=== PATIENT | female | born 1955 | race Caucasian/White ===

== ENCOUNTER 2020-04-19 14:24 | Observation (INO) | payer OTHER, SELFPAY ==
[2020-04-19] VITALS (33 sets, daily range): BP systolic 136–180; BP diastolic 59–92; PULSE 54–79; RESP 12–29; TEMP 36.2–36.9; O2SAT 93–100; BMI 32.9; BMI 31.6
--- NOTE | 2020-04-19 14:30 | DI.RAD.S_ITS ---
PROCEDURE: XR CHEST 1V INDICATIONS: chest pain TECHNIQUE: One view of the chest was acquired. COMPARISON: None. FINDINGS: Surgical changes and devices: None. Lungs and pleura: Lungs are clear. No pleural effusions or pneumothorax. Mediastinum: Mediastinal contours appear normal. Heart size is normal. Bones and chest wall: No suspicious bony lesions. Overlying soft tissues appear unremarkable. IMPRESSION: No acute disease. Dictated by: Hai Rasheed M.D. on 04/19/2020 at 14:55 Approved by: Hai Rasheed M.D. on 04/19/2020 at 14:56
[2020-04-19 14:55] LABS: Alanine Aminotransferase 20 IU/L (<35); Albumin 4.5 g/dL (3.5-5.0); Albumin Globulin Ratio 1.4 (1.0-2.8); Alkaline Phosphatase 87 U/L (38-126); Aspartate Aminotransferase 33 IU/L (14-36); BUN Creatinine Ratio 22.7 (6-22); Bilirubin Total 0.5 mg/dL (0.2-1.3); Blood Urea Nitrogen 17 mg/dL (7-17); Calcium 9.3 mg/dL (8.4-10.2); Carbon Dioxide 27 mmol/L (22-32); Chloride 105 mmol/L (98-107); Creatine Kinase 161 U/L (30-135); Estimated Glomerular Filt Rate > 60.0 mL/min (>60); Globulin 3.3 g/dL (1.7-4.1); Glucose 93 mg/dL (80-110); HEMOLYSIS < 15 (0-50); Lipase 156 U/L (23-300); Sodium 137 mmol/L (137-145); Total Protein 7.8 g/dL (6.3-8.2)
[2020-04-19 14:57] LABS: Prothrombin Time 11.5 SECONDS (10.1-12.7)
[2020-04-19 14:59] LABS: Add Manual Diff / Slide Review NO; Basophils Absolute Auto 100 /uL (0-100); Basophils Percent Auto 1.2 % (0-2); Eosinophils Absolute Auto 300 /uL (0-450); Eosinophils Percent Auto 3.6 % (2-4); Hematocrit 40.2 % (36-46); Hemoglobin 13.4 g/dL (12.0-16.0); Lymphocytes Absolute Auto 2200 /uL (1100-4500); Lymphocytes Percent Auto 30.4 % (25-40); Mean Corpuscular HGB Conc 33.3 % (30-36); Mean Corpuscular Hemoglobin 28.4 PG (26-34); Mean Corpuscular Volume 85.1 fL (80-100); Monocytes Absolute Auto 600 /uL (0-900); Monocytes Percent Auto 8.4 % (3-14); Neutrophils Absolute Auto 4100 /uL (1500-7000); Neutrophils Percent Auto 56.4 % (50-75); Platelet Count 255 X10^3/uL (150-400); Red Blood Cell Count 4.73 X10^6/uL (4.0-5.2); Red Cell Distribution Width 13.6 % (11.6-14.8); White Blood Cell Count 7.2 X10^3/uL (4.5-11.0)
[2020-04-19 15:00] LABS: PTT Partial Thromboplastin Tim 31 SECONDS (26.4-36.2)
[2020-04-19 15:07] LABS: Troponin I < 0.012 ng/mL (0.01-0.034)
[2020-04-19 15:11] LABS: CKMB % Relative Index 1.5 % (1.5-5.0); Creatine Kinase MB 2.34 ng/mL (<2.37)
--- NOTE | 2020-04-19 15:19 | ED.CHESTPAIN ---
HPI - Chest Pain General Chief Complaint: Chest Pain Stated Complaint: chest pain Time Seen by Provider: 04/19/20 15:19 Source: EMS Mode of arrival: EMS Limitations: no limitations History of Present Illness HPI narrative: This is a 64-year-old female comes in with complaint of chest pain. Patient states she had pain over both her collar bones, radiating towards her neck and threw her upper back. She also has some discomfort in her ribcage. She states this started about 10:00 a.m. today she states it was pretty constant till about 12 30. She received aspirin 324 mg this seemed to start relieve her symptoms. She had 1 spray of nitro sublingual she states her symptoms were completely resolved. She states it did feel more comfortable to take a deep breath in her ribcage. She states she has been under lot of stress lately. She does not currently have any symptoms. She denies any fevers, no chills, no cough cold or congestion. No shortness of breath, no diaphoresis. She denies any nausea no vomiting no issues with bowel movements or urination denies any swelling in her extremities. She does use drops for glaucoma. She denies any other medications. She had a total hysterectomy. No allergies to medications. No tobacco, alcohol or illicit. She follows with Dr. [place] in [place]. Family history mom had a heart attack followed by stroke at 89 years of age. She denies other embolic or pulmonary history. She had a stress test 2 years ago which she states did not have any findings. Related Data Home Medications Medication Instructions Recorded Confirmed bimatoprost [Lumigan] 1 drp EYE-BOTH BEDTIME 04/19/20 04/19/20 Allergies Allergy/AdvReac Type Severity Reaction Status Date / Time No Known Allergies Allergy Verified 04/19/20 16:59 Review of Systems Review of Systems ROS Unobtainable: All systems reviewed & are unremarkable except as noted in HPI and below Patient History Medical History (Updated 04/19/20 @ 15:36 by Donna Griggs DO) Glaucoma Social History Smoking Status: Never smoker Smoking Status: Never smoker Substance Use Type: does not use Exam Narrative Exam Narrative: GENERAL: Alert and oriented x three, well-nourished, well-appearing female in mild distress. HEENT: Head normocephalic, atraumatic, EOMI, pupils reactive, face symmetric, moist mucous membranes NECK: Supple, full range of motion CARDIOVASCULAR: Regular rate and rhythm without murmurs, rubs or gallops. RESPIRATORY: Breath sounds equal bilaterally, no wheezes rales or rhonchi. Chest pain not reproducible on exam. ABDOMEN: Soft, nontender. Normoactive bowel sounds all 4 quadrants. No guarding or rebound, rigidity, no mass : No CVA tenderness EXTREMITIES: Normal range of motion, no clubbing or edema. Neurovascularly intact NEUROLOGICAL: Cranial nerves II through XII grossly intact. Moving all extremities SKIN: Warm, dry, no petechiae, no rashes or lesions. Initial Vital Signs Initial Vital Signs: Vital Signs Temperature 98.4 F 04/19/20 14:25 Pulse Rate 70 04/19/20 14:25 Respiratory Rate 16 04/19/20 14:25 Blood Pressure 157/79 H 04/19/20 14:25 Pulse Oximetry 96 04/19/20 14:25 Scores HEART Score Heart Score history: Moderately Suspicious Heart Score EKG: Non-Specific repolarization disturbance Heart Score Age: > or = 65 years old Heart Score risk factors: No known risk factors Heart Score troponin: < or = to normal limit Heart Score Total: 4 Course Orders Ordered: ED Orders 04/19/20 14:30 XR chest 1V Stat EKG-12 Lead Stat 04/19/20 14:32 Complete Blood Count AUTO DIFF Stat Comprehensive Metabolic Panel Stat D Dimer Stat Lipase Stat Partial Thromboplastin Time Stat Prothrombin Time INR Stat Troponin & CK Cardiac Panel Stat 04/19/20 15:01 COVID19 Stat 04/19/20 15:08 EKG-12 Lead Stat 04/19/20 16:55 Troponin I Stat Nitroglycerin (Nitroglycerin 0.4 Mg Sl Tab) 0.4 mg SL [id number] PRN PRN Reason: Chest Pain Last Admin: 04/19/20 16:50 Dose: 0.4 mg Documented by: BOLIVAR Discontinued Medications Nitroglycerin (Nitroglycerin Oint 1 Inch/Gm Oint...G.) 0.5 inch TOP NOW ONE Stop: 04/19/20 17:26 Last Admin: 04/19/20 17:31 Dose: 0.5 inch Documented by: BOLIVAR Consultations Consultation #1: Dr. Linares, recommends if troponins have remained negative but with described EKG changes observation for trending troponin and chest stress testing tomorrow. If patient's troponins turn positive for patient has new progressive EKG changes recommends re-consultation with Cardiology. Time: 18:33 Consultation #2: Dr. Armendariz accepts for observation. Stress test in am. Time: 18:46 Vital Signs Vital signs: Vital Signs - 8 hr 04/19/20 14:25 04/19/20 14:26 04/19/20 14:27 Temperature 98.4 F Pulse Rate 70 61 Respiratory Rate 16 Blood Pressure 157/79 H 157/79 H Pulse Oximetry 96 98 04/19/20 14:30 04/19/20 14:45 04/19/20 15:00 Temperature Pulse Rate 64 73 63 Respiratory Rate 20 27 H 29 H Blood Pressure 142/81 H 142/83 H Pulse Oximetry 95 97 98 04/19/20 15:15 04/19/20 15:30 04/19/20 15:45 Temperature Pulse Rate 69 54 L 62 Respiratory Rate 23 16 12 Blood Pressure 154/80 H Pulse Oximetry 97 98 95 04/19/20 16:11 04/19/20 16:12 04/19/20 16:15 Temperature Pulse Rate 59 L 58 L 60 Respiratory Rate 14 14 19 Blood Pressure 160/86 H Pulse Oximetry 100 100 98 04/19/20 16:30 04/19/20 16:45 04/19/20 16:50 Temperature Pulse Rate 59 L 65 Respiratory Rate 17 24 Blood Pressure 180/89 H 180/80 H Pulse Oximetry 100 99 04/19/20 17:00 04/19/20 17:01 04/19/20 17:15 Temperature Pulse Rate 79 76 67 Respiratory Rate 24 28 H 20 Blood Pressure 141/71 H Pulse Oximetry 93 93 98 04/19/20 17:30 04/19/20 17:31 04/19/20 17:45 Temperature Pulse Rate 66 65 63 Respiratory Rate 18 21 25 H Blood Pressure 168/88 H Pulse Oximetry 95 96 98 04/19/20 18:00 04/19/20 18:15 04/19/20 18:30 Temperature Pulse Rate 64 69 67 Respiratory Rate 14 20 15 Blood Pressure 163/92 H 152/83 H Pulse Oximetry 97 94 94 MDM - Chest Pain Lab Data Attestation: I reviewed the patient's lab results. Result diagrams: 04/19/20 14:32 04/19/20 14:32 Labs: Lab Results 04/19/20 04/19/20 04/19/20 Range/Units 14:32 14:32 14:32 WBC 7.2 (4.5-11.0) X10^3/uL RBC 4.73 (4.0-5.2) X10^6/uL Hgb 13.4 (12.0-16.0) g/dL Hct 40.2 (36-46) % MCV 85.1 (80-100) fL MCH 28.4 (26-34) PG MCHC 33.3 (30-36) % RDW 13.6 (11.6-14.8) % Plt Count 255 (150-400) X10^3/uL Neut % (Auto) 56.4 (50-75) % Lymph % (Auto) 30.4 (25-40) % [place] % (Auto) 8.4 (3-14) % Eos % (Auto) 3.6 (2-4) % Baso % (Auto) 1.2 (0-2) % Neut # (Auto) 4100 (4432-2411) /uL Lymph # (Auto) 2200 (4260-6801) /uL [place] # (Auto) 600 (0-900) /uL Eos # (Auto) 300 (0-450) /uL Baso # (Auto) 100 (0-100) /uL PT 11.5 (10.1-12.7) SECONDS INR 1.0 (0.9-1.3) APTT 31 (26.4-36.2) SECONDS D-Dimer (<230) ng/mL Sodium 137 (137-145) mmol/L Potassium 4.0 (3.4-5.1) mmol/L Chloride 105 (98-107) mmol/L Carbon Dioxide 27 (22-32) mmol/L BUN 17 (7-17) mg/dL Creatinine 0.75 (0.52-1.04) mg/dL Estimated GFR > 60.0 (>60) mL/min BUN/Creatinine Ratio 22.7 H (6-22) Glucose 93 (80-110) mg/dL Calcium 9.3 (8.4-10.2) mg/dL Total Bilirubin 0.5 (0.2-1.3) mg/dL AST 33 (14-36) IU/L ALT 20 (<35) IU/L Alkaline Phosphatase 87 (38-126) U/L Total Creatine Kinase 161 H (30-135) U/L CK-MB (CK-2) 2.34 (<2.37) ng/mL CK-MB (CK-2) Rel Index 1.5 (1.5-5.0) % Troponin I < 0.012 (0.01-0.034) ng/mL Total Protein 7.8 (6.3-8.2) g/dL Albumin 4.5 (3.5-5.0) g/dL Globulin 3.3 (1.7-4.1) g/dL Albumin/Globulin Ratio 1.4 (1.0-2.8) Lipase 156 (23-300) U/L SARS-CoV-2 (PCR) (Negative) 04/19/20 04/19/20 04/19/20 Range/Units 14:32 15:01 16:55 WBC (4.5-11.0) X10^3/uL RBC (4.0-5.2) X10^6/uL Hgb (12.0-16.0) g/dL Hct (36-46) % MCV (80-100) fL MCH (26-34) PG MCHC (30-36) % RDW (11.6-14.8) % Plt Count (150-400) X10^3/uL Neut % (Auto) (50-75) % Lymph % (Auto) (25-40) % [place] % (Auto) (3-14) % Eos % (Auto) (2-4) % Baso % (Auto) (0-2) % Neut # (Auto) (7841-8370) /uL Lymph # (Auto) (3957-6153) /uL [place] # (Auto) (0-900) /uL Eos # (Auto) (0-450) /uL Baso # (Auto) (0-100) /uL PT (10.1-12.7) SECONDS INR (0.9-1.3) APTT (26.4-36.2) SECONDS D-Dimer 265 H (<230) ng/mL Sodium (137-145) mmol/L Potassium (3.4-5.1) mmol/L Chloride (98-107) mmol/L Carbon Dioxide (22-32) mmol/L BUN (7-17) mg/dL Creatinine (0.52-1.04) mg/dL Estimated GFR (>60) mL/min BUN/Creatinine Ratio (6-22) Glucose (80-110) mg/dL Calcium (8.4-10.2) mg/dL Total Bilirubin (0.2-1.3) mg/dL AST (14-36) IU/L ALT (<35) IU/L Alkaline Phosphatase (38-126) U/L Total Creatine Kinase (30-135) U/L CK-MB (CK-2) (<2.37) ng/mL CK-MB (CK-2) Rel Index (1.5-5.0) % Troponin I < 0.012 (0.01-0.034) ng/mL Total Protein (6.3-8.2) g/dL Albumin (3.5-5.0) g/dL Globulin (1.7-4.1) g/dL Albumin/Globulin Ratio (1.0-2.8) Lipase (23-300) U/L SARS-CoV-2 (PCR) Negative (Negative) Imaging Data Chest x-ray: Radiologist's Impression: [address] [id number] ReportSigned Patient: Simin Fisher MMR#: [id number]: 5Acct:[id number]/Sex: 64 / FDate of Service: 04/19/20Loc: EDAccession Number: [id number] Procedure: XR chest 1V Ordering Provider: Donna Griggs D.O. PROCEDURE: XR CHEST 1V INDICATIONS: chest pain TECHNIQUE: One view of the chest was acquired. COMPARISON: None. FINDINGS: Surgical changes and devices: None. Lungs and pleura: Lungs are clear. No pleural effusions or pneumothorax. Mediastinum: Mediastinal contours appear normal. Heart size is normal. Bones and chest wall: No suspicious bony lesions. Overlying soft tissues appear unremarkable. IMPRESSION: No acute disease. Dictated by: Hai Rasheed M.D. on 04/19/2020 at 14:55 Approved by: Hai Rasheed M.D. on 04/19/2020 at 14:56 ECG Data Attestation: I personally reviewed and interpreted this ECG as follows: Prior ECG tracings: not available for review Interpretation: EKG 1. Shows normal sinus rhythm left axis deviation with a rate of 60, CT 194, QRS of 56 and QTC of [address] elevationinverted T-waves in 3 and V2. EKG 2. Shows normal sinus rhythm left axis deviation rate of 68, CT 196 QRS is 78 QTC 450. T-wave changes in 3 and V2. No elevation otherwise appreciated. EKG3. Shows sinus rhythm left axis deviation. Rate of 68, CT 196 QRS is 78 QTC 450. T-wave inverted in 3, not appreciated in AVF. Q-wave in V2 with inverted T-wave. Patient has some change in the 3. MDM Narrative Medical decision making narrative: Patient had ASA 324mg and 1 sublingual nitro 0.4mg with EMS with resolution of chest pain. Patient's EKG shows some change but no priors for comparison she is chest pain-free at this time with initial troponin negative. Repeat troponin was ordered as well as EKG repeated at 15 minutes and then a 3rd time at the 2 hour hanh. Patient did develop recurrent symptoms when she ambulated to the bathroom. This began to resolve with rest which she was given nitropaste. Discussed with cardiology, Dr. Linares with recommendations for serial enzymes and stress testing tomorrow. Accepted by hospitalist Dr. Armendariz for observation. Discharge Plan Departure Patient Disposition: Admitted as Observation Clinical Impression: Chest pain Admit Date/Time: 04/19/20 19:19 Admit Provider: Monster Armendariz
[2020-04-19 15:38] LABS: COVID19 -Nasal RAPID Negative (Negative)
[2020-04-19 15:42] LABS: D Dimer 265 ng/mL (<230)
[2020-04-19] MEDS: NITROGLYCERIN 0.4 MG SL TAB SL (16:50)
[2020-04-19] MEDS: NITROGLYCERIN OINT 1 INCH/GM OINT...G. 0.5 INCH TOP (17:31)
[2020-04-19 17:52] LABS: Troponin I < 0.012 ng/mL (0.01-0.034)
[2020-04-19 21:07] LABS: Cholesterol 236 mg/dL (140-199); HDL Cholesterol 78 mg/dL (40-60); LDL Cholesterol Calculated 149 mg/dL (<100); Triglycerides 44 mg/dL (35-150)
[2020-04-19] MEDS: SODIUM CHLORIDE 0.9% 1,000 ML 60 ML IV (21:11)
[2020-04-19] MEDS: METOPROLOL IR 25 MG TABLET 12.5 MG PO (21:11)
[2020-04-19] MEDS: EYE EYE-BOTH (21:19)
[2020-04-19] MEDS: BIMATOPROST 0.01% EYE-BOTH (21:19)
[2020-04-19 21:42] LABS: NT-proBNP (BNP-Adult 18+) 42 pg/mL (<125)
[2020-04-19 21:45] LABS: Troponin I < 0.012 ng/mL (0.01-0.034)
--- NOTE | 2020-04-19 22:15 | PC.NURSE ---
Admission note: Patient arrived from ED on stretcher at 2019, ambulated self to inpatient bed without difficulty. No hx of falls. Axox3, can make needs known. Only home med is Lumigan for her glaucoma, pharmacy verified and reissued her eye drops which are in nurse tray server. Fall risk and safety education given, call light in reach.
[2020-04-20] VITALS (8 sets, daily range): BP systolic 103–133; BP diastolic 59–75; PULSE 51–88; RESP 17–18; TEMP 36.1–37; O2SAT 94–98
[2020-04-20 04:24] LABS: INR 1.1 (0.9-1.3); Prothrombin Time 12.1 SECONDS (10.1-12.7)
--- NOTE | 2020-04-20 04:25 | PM.HP.1 ---
History of Present Illness History of Present Illness Date Patient Seen: 04/19/20 Time Patient Seen: 20:13 Chief complaint: chest pain Narrative: Patient is a 64-year-old female Simin Fisher who presented to the emergency department for complaint of chest pain and elevated blood pressure. Patient has a medical history of glaucoma only and only takes eyedrops for her glaucoma, no previous surgical history, no other medication, and no allergies. In Er patient reported that she had pain over both her collar bones, radiating towards her neck and threw her upper back. She also has some discomfort in her ribcage. She states this started about 10:00 a.m. today she states it was pretty constant till about 12 30. She received aspirin 324 mg this seemed to start relieve her symptoms. She had 1 spray of nitro sublingual she states her symptoms were completely resolved. She states it did feel more comfortable to take a deep breath in her ribcage. She states she has been under lot of stress lately. She does not currently have any symptoms. She denies any fevers, no chills, no cough cold or congestion. No shortness of breath, no diaphoresis. She denies any nausea no vomiting no issues with bowel movements or urination denies any swelling in her extremities. She denies any other medications. She had a total hysterectomy. No allergies to medications. No tobacco, alcohol or illicit. She follows with Dr. [place] in [place]. Family history mom had a heart attack followed by stroke at 89 years of age. She denies other embolic or pulmonary history. She had a stress test 2 years ago which she states did not have any findings. Upon admit to the floor patient denied any further pain or discomfort of any kind, irregular or skipped heartbeats, chest pain shortness of breath, changes in vision weakness, nausea vomiting diarrhea, fever chills body aches. Patient presented to the emergency room with BP 152/83, HR 67, RR 15, SaO2 94%. Heart score of 4. D-dimer 265, BUN creatinine ratio 22.7, total creatinine kinase 161, CK-MB was negative at 2.34, troponin 0.012. Patient admitted for chest pain Patient History Medical History Glaucoma Family & Social History Family History Mother Atrial fibrillation Heart attack Father Hypertension Social History: household members spouse Prior Living Arrangements House Safety & Behavioral: Feels Safe in Current Yes Environment Been Physically Hurt or No Threatened By a Person Suicidal Ideation Description None Suicide Plan Description No Plan Tobacco & Substance use: Smoking Status Never smoker alcohol intake never Substance Use Type does not use Meds Home Medications and Allergies Home Medications Medication Instructions Recorded Confirmed Type bimatoprost [Lumigan] 1 drp EYE-BOTH BEDTIME 04/19/20 04/19/20 History Allergies Allergy/AdvReac Type Severity Reaction Status Date / Time No Known Allergies Allergy Verified 04/19/20 16:59 Review of Systems Review of Systems ROS: Yes All systems reviewed with the patient and are negative except as otherwise documented Exam Vital Signs (past 8 hours): - 04/19/20 20:40 04/19/20 21:25 04/20/20 00:30 Temperature 97.2 F L 98.6 F Pulse Rate 63 51 L Respiratory Rate 14 18 Blood Pressure 137/59 L 111/59 L Pulse Oximetry 96 97 94 04/20/20 01:25 04/20/20 03:42 Temperature 98.4 F Pulse Rate 52 L Respiratory Rate 18 Blood Pressure 103/59 L Pulse Oximetry 94 96 Oxygen Delivery Method Room Air Oxygen Flow Rate 0 Narrative Exam Narrative: General: Patient is a well-developed, well-nourished female, who appears younger than stated age, in no distress at this time. HEENT: Normocephalic, atraumatic, extraocular muscles intact, oral pharynx is clear and mucous membranes are moist. Neck is supple and symmetric, trachea is midline, no adenopathy, no thyroid enlargement, nontender, no masses palpated. Negative for JVD Chest: Normal AP diameter and contour without kyphoscoliosis, no nasal flaring, retractions, or tachypneic labored Lungs: Auscultation of all lung mcgregor are clear without adventitious sounds, wheezes, rhonchi, or rales. Cardio: S1 & S2 with regular rate and rhythm without murmur, rubs, or gallops, no carotid bruit, no cardiac pulsations present. Abdomen: Soft nontender, negative for organomegaly, or masses. Bowel sounds are present in all 4 quadrants without guarding or rebound, no CVA tenderness. Musculoskeletal: Muscle strength and tone are equal within normal limits, no deformity, Uriel crepitus, effusions, cyanosis, clubbing or edema present. Full range of motion intact radial and pedal pulses are normal. Skin: Warm dry and intact without rashes, ulcerations or petechiae. Neuro: Alert and orientated x3, strength is +5/5 in all extremities, sensation to touch intact, no gross deficits noted of cranial nerves. Psych: Patient has a well-kept appearance, appropriate affect, mental status attitude thought context and judgment are appropriate for age. Objective Labs Result Diagrams: 04/19/20 14:32 04/19/20 14:32 Labs: Laboratory Results - last 24 hr 04/19/20 04/19/20 04/19/20 14:32 14:32 14:32 WBC 7.2 RBC 4.73 Hgb 13.4 Hct 40.2 MCV 85.1 MCH 28.4 MCHC 33.3 RDW 13.6 Plt Count 255 Neut % (Auto) 56.4 Lymph % (Auto) 30.4 [place] % (Auto) 8.4 Eos % (Auto) 3.6 Baso % (Auto) 1.2 Neut # (Auto) 4100 Lymph # (Auto) 2200 [place] # (Auto) 600 Eos # (Auto) 300 Baso # (Auto) 100 PT 11.5 INR 1.0 APTT 31 D-Dimer Sodium 137 Potassium 4.0 Chloride 105 Carbon Dioxide 27 BUN 17 Creatinine 0.75 Estimated GFR > 60.0 BUN/Creatinine Ratio 22.7 H Glucose 93 Calcium 9.3 Total Bilirubin 0.5 AST 33 ALT 20 Alkaline Phosphatase 87 Total Creatine Kinase 161 H CK-MB (CK-2) 2.34 CK-MB (CK-2) Rel Index 1.5 Troponin I < 0.012 NT-Pro-B Natriuret Pep Total Protein 7.8 Albumin 4.5 Globulin 3.3 Albumin/Globulin Ratio 1.4 Triglycerides Cholesterol LDL Cholesterol, Calc HDL Cholesterol Lipase 156 SARS-CoV-2 (PCR) 04/19/20 04/19/20 04/19/20 14:32 14:32 15:01 WBC RBC Hgb Hct MCV MCH MCHC RDW Plt Count Neut % (Auto) Lymph % (Auto) [place] % (Auto) Eos % (Auto) Baso % (Auto) Neut # (Auto) Lymph # (Auto) [place] # (Auto) Eos # (Auto) Baso # (Auto) PT INR APTT D-Dimer 265 H Sodium Potassium Chloride Carbon Dioxide BUN Creatinine Estimated GFR BUN/Creatinine Ratio Glucose Calcium Total Bilirubin AST ALT Alkaline Phosphatase Total Creatine Kinase CK-MB (CK-2) CK-MB (CK-2) Rel Index Troponin I NT-Pro-B Natriuret Pep Total Protein Albumin Globulin Albumin/Globulin Ratio Triglycerides 44 Cholesterol 236 H LDL Cholesterol, Calc 149 H HDL Cholesterol 78 H Lipase SARS-CoV-2 (PCR) Negative 04/19/20 04/19/20 04/19/20 16:55 21:10 21:10 WBC RBC Hgb Hct MCV MCH MCHC RDW Plt Count Neut % (Auto) Lymph % (Auto) [place] % (Auto) Eos % (Auto) Baso % (Auto) Neut # (Auto) Lymph # (Auto) [place] # (Auto) Eos # (Auto) Baso # (Auto) PT INR APTT D-Dimer Sodium Potassium Chloride Carbon Dioxide BUN Creatinine Estimated GFR BUN/Creatinine Ratio Glucose Calcium Total Bilirubin AST ALT Alkaline Phosphatase Total Creatine Kinase CK-MB (CK-2) CK-MB (CK-2) Rel Index Troponin I < 0.012 < 0.012 NT-Pro-B Natriuret Pep 42 Total Protein Albumin Globulin Albumin/Globulin Ratio Triglycerides Cholesterol LDL Cholesterol, Calc HDL Cholesterol Lipase SARS-CoV-2 (PCR) Assessment & Plan Assessment & Plan narrative: This patient requires acute care inpatient hospital observing management for chest pain, per Dr. Marquez Cardiology consult. 1. Chest pain, new onset, acute, resolved with interventions in emergency room, present on admission rule out ACS - Patient presented to the emergency room with BP 152/83, HR 67, RR 15, SaO2 94%. Heart score of 4. D-dimer 265, BUN creatinine ratio 22.7, total creatinine kinase 161, CK-MB was negative at 2.34, troponin 0.012. EKG #1:Shows normal sinus rhythm left axis deviation with a rate of 60, [place] 194, QRS of 56 and QTC of [address] elevationinverted T-waves in 3 and V2. EKG 2. Shows normal sinus rhythm left axis deviation rate of 68, VA 196 QRS is 78 QTC 450. T-wave changes in 3 and V2. No elevation otherwise appreciated. EKG3. Shows sinus rhythm left axis deviation. Rate of 68, [place] 196 QRS is 78 QTC 450. T-wave inverted in 3, not appreciated in AVF. Q-wave in V2 with inverted T-wave. Patient has some change in the 3. Patient admitted for chest pain -Consultation #1: Dr. Linares, recommends if troponins have remained negative but with described EKG changes observation for trending troponin and chest stress testing tomorrow. If patient's troponins turn positive for patient has new progressive EKG changes recommends re-consultation with Cardiology. -patient to be monitored on tele medicine, vital signs q.4 hours, intake and output monitored Q shift, weight measure daily, diet: Heart healthy -metoprolol 12.5 mg now for BP 152/83 -IV fluid normal saline 60 cc/hour, O2 96% on room air -Continuous tele monitoring and order echo for tomorrow, -Serial troponins 1 Q 6 hours x3, cardiac enzymes, proBNP, TSH, ABG, CBC, electrolytes, UA and chest x-ray, blood pressure in both arms: -sublingual nitro glycerin 0.4 mg, aspirin 325 mg, consider ordering order CTA or V/Q scan or CT per cardio. - If patient develops uncontrolled hypertension will consider: Metoprolol 5 mg IV or Cardizem 5 mg to 10 mg IV Q 15 minutes, Beta-everton, nitrates, MS, heparin, start Plavix (if chest pain persists) -Monitor for hypertensive emergencies with acute end-organ damage, ventricular tachycardia, unstable SVT, hypertension, angina or WI, heart failure, renal function. -labs ordered: D-dimer, troponin Q 6, CK-MB Darrin Vasc score:3 - Goals: reducing blood pressure over 24-48 hours, not more than 25-30% in the 1st 24 hours. O2 to keep O2 sats greater than 92% potassium > 4 and Mag > 2, -consults ordered physical therapy, occupational therapy, discharge. -prevention vaccine: Recommend seasonal flu, shingles, pneumonia, COVID-19 when available 2. Glaucoma, chronic, stability unknown, present on admission -continue patient's bimatoprost drops Code status: DNR Surrogate/plan of care: Spouse Chino Palumbo COVID PCR: Negative VTE prophylaxis: Lovenox 40 mg, and SCDs Scores GCS Fawad coma scale eye opening: Spontaneous Johnson coma scale verbal response: Orientated Fawad coma scale motor response: Obey commands Johnson coma scale total score: 15 CHADS-VASc Congestive heart failure: no Hypertension: yes Age 75 years or older: no Diabetes mellitus: no Stroke, TIA, or TE: no Vascular disease: no Age 65 to 74 years: yes Sex category (female): Female CHADS-VASc Score: 3 Wells' Criteria for PE Clinical signs and symptoms of DVT: No PE is #1 Dx or equally likely: No Immobilization at least 3 days or surg in previous 4 weeks: No History of PE or DVT: No Hemoptysis: No Malignancy w/Treatment within 6 months or palliative: No Quality VTE Deep Vein Thrombosis/Pulmonary Embolism Present on Admission: No
[2020-04-20 04:31] LABS: D Dimer < 200 ng/mL (<230)
[2020-04-20 04:41] LABS: Troponin I < 0.012 ng/mL (0.01-0.034)
[2020-04-20 04:44] LABS: Creatine Kinase 96 U/L (30-135); Magnesium 2.3 mg/dL (1.6-2.3); Phosphorous 4.6 mg/dL (2.8-4.1)
[2020-04-20] MEDS: ENOXAPARIN 40 MG/0.4 ML SYRINGE SUBCUT (08:14)
[2020-04-20] MEDS: ASPIRIN EC 325 MG TABLET PO (08:14)
--- NOTE | 2020-04-20 09:00 | DI.ECHO.S_ITS ---
[facility]---------+ [facility] +---------+ : : [address] : : : : [id number] : : : : Phone: [phone]+ Echocardiogram Report + + :Name: JOSE VELAZQUEZ Study Date: 04/20/2020 Height: 62 in : :[facility] ReadingLocation: Weight: 173 lb : : Gender: Female BSA: 1.8 m2 : :: 1955 Age: 64 yrs BP: 111/59 mmHg: :Reason For Study: CHEST PAIN, HEART SCORE 4 : :Ordering Physician: GABE, : :BISI Performed By: Yoana Soler : :Referring: BISI BERNAL : + + Interpretation Summary Normal sinus rhythm. Normal LV size, wall thickness, wall motion and LV systolic function. EF is 60-65%. Mild LA enlargement. No valvular abnormalities. No prior study available for comparison. Procedure: A two-dimensional transthoracic echocardiogram with color flow and Doppler was performed. The study quality was technically adequate. There is no prior echocardiogram noted for this patient. The patient was in sinus rhythm with heart rates between 49-73 bpm during the exam. Left Ventricle: The left ventricle is normal in size and wall thickness. The ejection fraction is estimated to be 60-65%. Diastolic parameters suggest a relaxation abnormality of the left ventricle, consistent with probable normal filling pressures. Right Ventricle: The right ventricle is normal in size and function. Atria: The left atrium is mildly dilated. Right atrial size is normal. There is no Doppler evidence for an interatrial shunt. Mitral Valve: The mitral valve is normal in structure and function. There is trace mitral regurgitation. Aortic Valve: The aortic valve is trileaflet. The aortic valve opens well. There is no aortic valve stenosis. No aortic regurgitation is present. Tricuspid Valve: The tricuspid valve is normal in structure and function. There is trace tricuspid regurgitation. Pulmonic Valve: The pulmonic valve leaflets are thin and pliable; valve motion is normal. There is no pulmonic valvular regurgitation. Great Vessels: The aortic root is normal size. The dimensions of the ascending aorta are normal. The IVC is of normal diameter and collapses greater than 50% with a sniff. This suggests a low right atrial pressure of 3 mm Hg. Pericardium/ Pleura There is no pericardial effusion. There is no pleural effusion. MMode/2D Measurements & Calculations LVIDd: 4.1 cm LVOT diam: 2.0 cm LVIDs: 2.7 cm Ao root diam: 3.2 cm FS: 35.1 % asc Aorta Diam: 3.2 cm EPSS: 1.3 cm Ao Arch Diam (Prox Trans): 2.6 cm IVSd: 0.87 cm LVPWd: 0.88 cm LV paez. diameter/BSA (cm/m^2): 2.3 LV sys. diameter/BSA (cm/m^2): 1.5 LA A2 area: 20.9 cm2 RA long axis: 5.8 cm LA A4 area: 19.2 cm2 RA area: 18.5 cm2 LA length (vol): 5.2 cm RA vol: 50.2 ml LA vol: 65.5 ml RA : 27.9 ml/m2 LA vol index: 36.5 ml/m2 IVC diam: 1.3 cm RVD1 (basal): 3.1 cm TAPSE: 1.9 cm Doppler Measurements & Calculations Ao V2 max: 147.2 cm/sec LVOT Max Harman: 101.3 cm/sec Ao V2 mean: 100.4 cm/sec LV V1 max P.1 mmHg Ao max P.7 mmHg LV V1 VTI: 24.2 cm Ao mean P.5 mmHg ISABELLA(I,D): 2.3 cm2 Ao V2 VTI: 33.2 cm ISABELLA(V,D): 2.2 cm2 sev ratio: 0.73 ISABELLA indexed to BSA (cm^2/m^2): 1.3 MV E max harman: 74.2 cm/sec PA V2 max: 77.5 cm/sec MV A max harman: 90.3 cm/sec PA V2 mean: 51.9 cm/sec MV E/A: 0.82 PA mean P.2 mmHg Med Peak E' Harman: 6.0 cm/sec PA pr(Accel): 3.6 mmHg E/E' med: 12.3 Lat Peak E' Harman: 6.6 cm/sec E/E' lat: 11.2 E/e' average: 11.7 MV dec time: 0.19 sec SV(LVFLY): 76.0 ml Electronically signed by: Thania Blanton M.D. on Reading Physician:04/20/2020 04:41 PM
--- NOTE | 2020-04-20 10:52 | PC.NURSE ---
PT A/Ox4. Patient remains NPO awaiting ECHO and Stress test. Experiencing non radiating chest tightness at sternum at 0745, denies pain, dizziness, palpitations, SOB, nausea. Prescribed medications administered. SCD's on bilaterally. Patient ambulating in the room, SBA. IV patent, CDI. Call light in reach, denies further needs at this time.
--- NOTE | 2020-04-20 11:00 | PT.IIE ---
Medical History (Last Reviewed 04/20/20 @ 04:30 by Addie Simmons, [facility]) Glaucoma Physical Therapy Inpatient Evaluation/Re-Eval M1 PT/OT-IP Prior Functional Status Start: 04/20/20 09:35 Freq: NEEDED Status: Active Protocol: Document 04/20/20 10:50 AW (Rec: 04/20/20 10:59 AW [id number]) Medical Review Prior Functional Status Medical History Reviewed Yes Communication WNL Mobility and Gait Independent without assistive device and without meaningful limit. 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 Activities of Daily Living and IADL's Independent with all I/ADL's Social History Household Members spouse Living Arrangements House Number of Floors (Floors) Two Floors Number of Stairs To Enter/Railing? 5 PRASHANTH with left rail ascending . 12 steps down to basement with unilateral rail. 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 M2 PT-IP Current Condition Start: 04/20/20 09:35 Freq: NEEDED Status: Active Protocol: Document 04/20/20 10:50 AW (Rec: 04/20/20 10:59 AW [id number]) Physical Therapy Current Condition Current Condition Evaluation Date 04/20/20 Treatment Diagnosis acute chest pain Onset Date 04/19/20 Precautions Other Precautions vision impaired with glaucoma M3 PT-IP Subjective Start: 04/20/20 09:35 Freq: NEEDED Status: Active Protocol: Document 04/20/20 10:50 AW (Rec: 04/20/20 10:59 AW [id number]) Subjective Physical Therapy Visit Type Type Initial Evaluation Visit Start Time 10:28 Visit Stop Time 10:46 Total Visit Minutes 18 Physical Therapy Visit Comments Patient Comments Pt is willing to participate with PT Patient Goals Return home DEMETRIA Therapy Pain Assessment Pain When Pain Assessed During Mobility Pain Present Pain Present Denied Pain M4 PT-IP Mobility and Gait Start: 04/20/20 09:35 Freq: NEEDED Status: Active Protocol: Document 04/20/20 10:50 AW (Rec: 04/20/20 10:59 AW [id number]) PT-Bed Mobility Assessment Supine to Sit Supine to Sit Independent Scooting Scooting to Edge of Bed Independent PT-Transfer Assessment Sit to and From Stand Sit to and from Stand Independent Transfers Transfer Destination Chair,Toilet Transfer Technique Stand Step Pivot Transfer Ability Level of Assist Independent Comments Mobility Comments Pt was in bed as PT arrived. BP 123/56 HR 65. She completed all bed mobility, transfers, and ambulation independent with no LOB. BP after activity was 144/78 HR 71. Gait Assessment Gait Gait Assistance Required: Independent Distance (Feet) 300 Assistive Devices Assistive Device Gait Belt Orthotic/Prosthetic Devices or Brace: No Gait Deviations General Gait Pattern Within Normal Limits Comments Gait Comments Pt completed 4-item DGI with score of 11/12 (one point deducted for minor LOB with vertical head turns). Stair Climbing Assessment Evaluation Level of Assist On Stairs Independent Devices Stair Climbing Assistive Devices Left Railing Technique/Endurance Stair Climbing Direction Ascend and Descend Stair Climbing Technique Step Over Step Number of Steps Climbed 3 Query Text: Stair Climbing Set # Repetitions (reps) 2 PT-Balance Assessment Sitting Balance and Reactions Static Sitting Balance Ability Normal Dynamic Sitting Balance Ability Normal Standing Balance and Reactions Static Standing Balance Ability Normal Dynamic Standing Balance Ability Normal Functional Assessments Functional Tests Dynamic Gait Index 4-item DGI: 11/12 M5 PT-IP Objective Assessments Start: 04/20/20 09:35 Freq: NEEDED Status: Active Protocol: Document 04/20/20 10:50 AW (Rec: 04/20/20 10:59 AW [id number]) Orientation Orientation/Cognition Level of Alertness Alert Orientation Name,Age,Birthday,Month,Date, Year,Day of Week,Place, Situation Language Function Ability No Deficits Noted Memory Description No Deficits Noted Gross Range of Motion Lower Extremity ROM Assessment Within Functional Limits Strength Lower Extremity Strength Assessment Within Functional Limits Comments Strength Comments BLE grossly 5/5 except hip extension 4+/5 Sensation Assessment Sensation Gross Sensation WNL M6 PT-IP Treatment Start: 04/20/20 09:35 Freq: NEEDED Status: Active Protocol: Document 04/20/20 10:50 AW (Rec: 04/20/20 10:59 AW [id number]) Physical Therapy Treatment Education Education Provided Safety M7 PT-IP Assessment and Plan Start: 04/20/20 09:35 Freq: NEEDED Status: Active Protocol: Document 04/20/20 10:50 AW (Rec: 04/20/20 10:59 AW [id number]) PT Summary Assessment and Plan Summary Assessment Summary Simin is a 64 yo woman seen for PT evaluation with admitting diagnosis of acute chest pain. She is independent in all regards at baseline. She completed all mobility independently on evaluation with no dyspnea or chest pain. No PT needs identified. Pt will be safe to discharge home once medically cleared. Frequency of Treatment Frequency Of Treatment Discharge Recommendations To Nursing Amount of Assist Needed Independent Discharge Recommendations PT Discharge Recommendations Home Transportation Needs at Discharge Private Vehicle
--- NOTE | 2020-04-20 11:12 | OT.IPNOTE ---
Spoke to pt regarding OT eval and pt states she feels back to normal and feels does not have any OT needs. Able to talk to pt about stress management. No charge. Discharge OT eval orders.
--- NOTE | 2020-04-20 14:53 | CM.IDA ---
Initial DCP Assessment Note Pt is a 64 yo female, resident of [place]. Patient presents from work (at [employer]) w/chest pain , admitted for heart w/u- chest pain r/o PCP: Dr. [place], [facility] Payer: Gladys ORTA Met w/patient this morning to introduce role. 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 Patient expects to return home pending results from stress test, no needs expected from this LIFE EDUCATOR Later learned that stress test scheduled for tomorrow 04.21.20, patient will stay this evening. Dr Armendariz has discussed option w/patient of going home today w/ outpatient stress test and patient has declined, understanding that she is observation status but patient wanting stress test completed before return home. No needs expected from DC planning team although will remain available in case this changes before patient's DC. CONRAD Dunlap Discharge Planning/Care Management CM Discharge Assessment Start: 04/20/20 14:47 Freq: Status: Active Protocol: Document 04/20/20 14:47 MADELINE (Rec: 04/20/20 14:49 MADELINE [id number]) Discharge Planning Assessment Assigned Features Editor CONRAD Joseph DPOA/Assigned Designee Name Sanford Fisher, spouse Contact Information [phone] Advance Directives? No History Provided By Patient,Medical Record Prior Living Arrangements House Household Members spouse Type of transporation used prior to Drives own vehicle admit Independent with ADL's Yes Is patient alert and oriented? Yes Barriers to Discharge No Discharge Plan Home Transportation Arrangement Family Referrals Initiated None needed
--- NOTE | 2020-04-20 14:55 | PM.PN.1 ---
Subjective Subjective Date Patient Seen: 04/20/20 Time Patient Seen: 14:56 Interval history: Simin Fisher is a 64-year-old female admitted for further evaluation chest pain. Cardiology was consulted in the emergency room and recommended trending of her troponins and if negative a stress test. Troponins did remain negative x4, no significant EKG changes but there were nonspecific changes. Given her heart score of 4 elected to continue with stress testing. However this was not ordered this morning and when discovered nuclear imaging was unable to get her in this afternoon. Will plan for stress testing tomorrow morning after discussion with the patient. Exam Vital Signs (past 8 hours): - 04/20/20 08:00 04/20/20 12:00 Temperature 97.0 F L 98.2 F Pulse Rate 55 L 88 Respiratory Rate 17 18 Blood Pressure 106/71 133/75 Pulse Oximetry 97 98 Oxygen Delivery Method Room Air Oxygen Flow Rate 0 Narrative Exam Narrative: General: Patient is a well-developed, well-nourished female, who appears younger than stated age, in no distress at this time. HEENT: Normocephalic, atraumatic, extraocular muscles intact, oral pharynx is clear and mucous membranes are moist. Neck is supple and symmetric, trachea is midline, no adenopathy, no thyroid enlargement, nontender, no masses palpated. Negative for JVD Chest: Normal AP diameter and contour without kyphoscoliosis, no nasal flaring, retractions, or tachypneic labored Lungs: Auscultation of all lung mcgregor are clear without adventitious sounds, wheezes, rhonchi, or rales. Cardio: S1 & S2 with regular rate and rhythm without murmur, rubs, or gallops, no carotid bruit, no cardiac pulsations present. Abdomen: Soft nontender, negative for organomegaly, or masses. Bowel sounds are present in all 4 quadrants without guarding or rebound, no CVA tenderness. Musculoskeletal: Muscle strength and tone are equal within normal limits, no deformity, Uriel crepitus, effusions, cyanosis, clubbing or edema present. Full range of motion intact radial and pedal pulses are normal. Skin: Warm dry and intact without rashes, ulcerations or petechiae. Neuro: Alert and orientated x3, strength is +5/5 in all extremities, sensation to touch intact, no gross deficits noted of cranial nerves. Psych: Patient has a well-kept appearance, appropriate affect, mental status attitude thought context and judgment are appropriate for age. Objective Labs Result Diagrams: 04/19/20 14:32 04/19/20 14:32 Labs: Laboratory Results - last 24 hr 04/19/20 04/19/20 04/19/20 14:32 14:32 14:32 WBC 7.2 RBC 4.73 Hgb 13.4 Hct 40.2 MCV 85.1 MCH 28.4 MCHC 33.3 RDW 13.6 Plt Count 255 Neut % (Auto) 56.4 Lymph % (Auto) 30.4 [place] % (Auto) 8.4 Eos % (Auto) 3.6 Baso % (Auto) 1.2 Neut # (Auto) 4100 Lymph # (Auto) 2200 [place] # (Auto) 600 Eos # (Auto) 300 Baso # (Auto) 100 PT 11.5 INR 1.0 APTT 31 D-Dimer Sodium 137 Potassium 4.0 Chloride 105 Carbon Dioxide 27 BUN 17 Creatinine 0.75 Estimated GFR > 60.0 BUN/Creatinine Ratio 22.7 H Glucose 93 Calcium 9.3 Phosphorus Magnesium Total Bilirubin 0.5 AST 33 ALT 20 Alkaline Phosphatase 87 Total Creatine Kinase 161 H CK-MB (CK-2) 2.34 CK-MB (CK-2) Rel Index 1.5 Troponin I < 0.012 NT-Pro-B Natriuret Pep Total Protein 7.8 Albumin 4.5 Globulin 3.3 Albumin/Globulin Ratio 1.4 Triglycerides Cholesterol LDL Cholesterol, Calc HDL Cholesterol Lipase 156 SARS-CoV-2 (PCR) 04/19/20 04/19/20 04/19/20 14:32 14:32 15:01 WBC RBC Hgb Hct MCV MCH MCHC RDW Plt Count Neut % (Auto) Lymph % (Auto) [place] % (Auto) Eos % (Auto) Baso % (Auto) Neut # (Auto) Lymph # (Auto) [place] # (Auto) Eos # (Auto) Baso # (Auto) PT INR APTT D-Dimer 265 H Sodium Potassium Chloride Carbon Dioxide BUN Creatinine Estimated GFR BUN/Creatinine Ratio Glucose Calcium Phosphorus Magnesium Total Bilirubin AST ALT Alkaline Phosphatase Total Creatine Kinase CK-MB (CK-2) CK-MB (CK-2) Rel Index Troponin I NT-Pro-B Natriuret Pep Total Protein Albumin Globulin Albumin/Globulin Ratio Triglycerides 44 Cholesterol 236 H LDL Cholesterol, Calc 149 H HDL Cholesterol 78 H Lipase SARS-CoV-2 (PCR) Negative 04/19/20 04/19/20 04/19/20 16:55 21:10 21:10 WBC RBC Hgb Hct MCV MCH MCHC RDW Plt Count Neut % (Auto) Lymph % (Auto) [place] % (Auto) Eos % (Auto) Baso % (Auto) Neut # (Auto) Lymph # (Auto) [place] # (Auto) Eos # (Auto) Baso # (Auto) PT INR APTT D-Dimer Sodium Potassium Chloride Carbon Dioxide BUN Creatinine Estimated GFR BUN/Creatinine Ratio Glucose Calcium Phosphorus Magnesium Total Bilirubin AST ALT Alkaline Phosphatase Total Creatine Kinase CK-MB (CK-2) CK-MB (CK-2) Rel Index Troponin I < 0.012 < 0.012 NT-Pro-B Natriuret Pep 42 Total Protein Albumin Globulin Albumin/Globulin Ratio Triglycerides Cholesterol LDL Cholesterol, Calc HDL Cholesterol Lipase SARS-CoV-2 (PCR) 04/20/20 04/20/20 04/20/20 04:04 04:04 04:04 WBC RBC Hgb Hct MCV MCH MCHC RDW Plt Count Neut % (Auto) Lymph % (Auto) [place] % (Auto) Eos % (Auto) Baso % (Auto) Neut # (Auto) Lymph # (Auto) [place] # (Auto) Eos # (Auto) Baso # (Auto) PT 12.1 INR 1.1 APTT D-Dimer < 200 Sodium Potassium Chloride Carbon Dioxide BUN Creatinine Estimated GFR BUN/Creatinine Ratio Glucose Calcium Phosphorus 4.6 H Magnesium 2.3 Total Bilirubin AST ALT Alkaline Phosphatase Total Creatine Kinase 96 CK-MB (CK-2) TNP CK-MB (CK-2) Rel Index TNP Troponin I < 0.012 NT-Pro-B Natriuret Pep Total Protein Albumin Globulin Albumin/Globulin Ratio Triglycerides Cholesterol LDL Cholesterol, Calc HDL Cholesterol Lipase SARS-CoV-2 (PCR) [facility] Medical History Glaucoma Family History Mother Atrial fibrillation Heart attack Father Hypertension Social History household members: spouse Smoking Status: Never smoker alcohol intake: never Assessment & Plan Assessment & Plan narrative: Simin Fisher is a 64-year-old female admitted under observation for chest pain, nuclear stress testing delayed until tomorrow. 1. Chest pain, new onset, acute, resolved with interventions in emergency room, present on admission rule out ACS -heart score of 4. Stress testing now planned for tomorrow. -echocardiogram performed and read is currently pending -patient does have some recurring chest discomfort, differentials along with atypical angina include but not limited to costochondritis and anxiety. 2. Glaucoma, chronic, stability unknown, present on admission -continue patient's bimatoprost drops 3. Elevated blood pressure reading - possibly in the setting of anxiety, improved today after given metoprolol, will continue to monitor off further BP medications. Resume as needed. Quality VTE Deep Vein Thrombosis/Pulmonary Embolism Present on Admission: No
[2020-04-20] MEDS: BIMATOPROST 0.01% EYE-BOTH (20:17)
[2020-04-20] MEDS: EYE EYE-BOTH (20:17)
[2020-04-21] VITALS (8 sets, daily range): BP systolic 120–139; BP diastolic 67–89; PULSE 54–70; RESP 14–16; TEMP 36.6–37.1; O2SAT 96–99
[2020-04-21] MEDS: SODIUM CHLORIDE 0.9% 1,000 ML 60 ML IV (06:32)
[2020-04-21] MEDS: ASPIRIN EC 325 MG TABLET PO (09:38)
[2020-04-21] MEDS: ENOXAPARIN 40 MG/0.4 ML SYRINGE SUBCUT (09:39)
--- NOTE | 2020-04-21 09:50 | PC.NURSE ---
Day shift note: 929: Patient returned from first part stress test, no C/O chest pain, SOB or dizziness. Up OOB to chair, mobilizing independently. Tele: Sinus John, HR 55, BP 120/76. Sitting in chair, awaiting next step.
--- NOTE | 2020-04-21 13:21 | DI.NM.S_ITS ---
PROCEDURE PERFORMED: Exercise treadmill stress and rest myocardial perfusion study with gating to assess ejection fraction and regional wall motion. DATE OF SERVICE: 04/21/2020 ORDERING PROVIDER: Dr. Monster Armendariz. INDICATIONS: The patient is a 64-year-old female admitted with chest discomfort and borderline EKG changes. EXERCISE TREADMILL TESTING: The patient was able to exercise for 10 minutes 50 seconds on a standard Malcolm protocol suggesting excellent exercise capacity with an VANDA of -50%. She had a normal heart rate and blood pressure response, achieving a maximum heart rate of 142 BPM (92% of her predicted maximum). She had no chest discomfort. Her resting ECG shows sinus rhythm and appears normal. There are no significant ST-segment shifts with exercise. No arrhythmias were seen except for rare isolated PVCs. At 9 minutes 50 seconds of exercise at a heart rate of 133 BPM, 26.6 millicuries of technetium-99m Myoview was injected. She was imaged 20 minutes later using a gated SPECT acquisition protocol. Earlier in the day while at rest she was injected with 10.8 millicuries of technetium-99m Myoview was imaged 45 minutes later, again using a gated SPECT acquisition protocol. FINDINGS: RAW DATA: There is fair myocardial tracer uptake with moderate breast shadows noted. Lung/heart ratio is normal at 0.16 with a normal TID ratio of 0.91. QUANTITATED GATED SPECT: Post-stress ejection fraction is estimated at 87% without any focal wall motion abnormality. Resting ejection fraction is estimated at 76% with an end-diastolic volume of 75 mL. MYOCARDIAL PERFUSION SCAN: The post-stress supine images shows a normal myocardial perfusion pattern without any perfusion defects, supported by normal perfusion imaging in the prone position. The resting images show an identical perfusion pattern without any areas of improvement. IMPRESSION: 1. Normal myocardial perfusion study. 2. No evidence of myocardial ischemia or previous myocardial infarction. 3. Normal left ventricular systolic function without focal wall motion abnormality. 4. Extraordinary exercise capacity without angina or ECG evidence of ischemia. Simin Fisher - RS/fn/cs doc#: [id number]/job#: [id number] dd: 04/21/2020 13:01:00 dt: 04/21/2020 13:12:00 DICTATING MD/COPIES TO: Paul Linares MD; Monster Armendariz M.D. COPIES MNE: CHERYLE;
--- NOTE | 2020-04-21 13:44 | PM.DS.1 ---
History of Present Illness History of Present Illness Date Patient Seen: 04/21/20 Time Patient Seen: 13:44 Chief complaint: chest pain Narrative: As per SONG mendes: Patient is a 64-year-old female Simin Fisher who presented to the emergency department for complaint of chest pain and elevated blood pressure. Patient has a medical history of glaucoma only and only takes eyedrops for her glaucoma, no previous surgical history, no other medication, and no allergies. In Er patient reported that she had pain over both her collar bones, radiating towards her neck and threw her upper back. She also has some discomfort in her ribcage. She states this started about 10:00 a.m. today she states it was pretty constant till about 12 30. She received aspirin 324 mg this seemed to start relieve her symptoms. She had 1 spray of nitro sublingual she states her symptoms were completely resolved. She states it did feel more comfortable to take a deep breath in her ribcage. She states she has been under lot of stress lately. She does not currently have any symptoms. She denies any fevers, no chills, no cough cold or congestion. No shortness of breath, no diaphoresis. She denies any nausea no vomiting no issues with bowel movements or urination denies any swelling in her extremities. She denies any other medications. She had a total hysterectomy. No allergies to medications. No tobacco, alcohol or illicit. She follows with Dr. [place] in [place]. Family history mom had a heart attack followed by stroke at 89 years of age. She denies other embolic or pulmonary history. She had a stress test 2 years ago which she states did not have any findings. Upon admit to the floor patient denied any further pain or discomfort of any kind, irregular or skipped heartbeats, chest pain shortness of breath, changes in vision weakness, nausea vomiting diarrhea, fever chills body aches. Patient presented to the emergency room with BP 152/83, HR 67, RR 15, SaO2 94%. Heart score of 4. D-dimer 265, BUN creatinine ratio 22.7, total creatinine kinase 161, CK-MB was negative at 2.34, troponin 0.012. Patient admitted for chest pain Discharge Providers Provider Date of admission: 04/19/20 19:19 Discharge Date: 04/21/20 Consults: 04/19/20 20:09 Consult to Discharge Planning Routine Comment: Consult to Occupational Therapy Evaluate & Treat Comment: Physician Instructions: Evaluate and treat Consult to Physical Therapy Evaluate & Treat Comment: Physician Instructions: Evaluate and Treat Discharge provider: Monster Armendariz DO Summary Hospital Course Discharge Diagnosis: 1. Chest pain, new onset, acute, resolved with interventions in emergency room, present on admission rule out ACS 2. Glaucoma, chronic, stability unknown, present on admission 3. Elevated blood pressure reading without a diagnosis of hypertension Hospital Course: Simin Fisher is a 64-year-old female who was admitted for further evaluation chest pain. She had nonspecific EKG changes and her heart score was 4 on admission. Troponins were trended and were negative. Echocardiogram was unremarkable and showed a normal ejection fraction without significant valvular pathologies. Stress testing was performed which was deemed low risk for ischemia. Further differentials for her chest pain include costochondritis, anxiety, GERD, amongst others. I recommended she follow-up with her primary care provider if her symptoms recur. Status at Discharge Cognitive/behavioral status at discharge: oriented Functional status at discharge: independent ambulation Overall status at discharge: patient is back to baseline Time Spent with Patient Time spent: Less than 30 minutes Exam Vital Signs (past 8 hours): - 04/21/20 06:00 04/21/20 07:45 04/21/20 10:00 Temperature 98 F 98.0 F Pulse Rate 70 55 L Respiratory Rate 16 Blood Pressure 126/67 120/76 Pulse Oximetry 96 97 97 04/21/20 13:12 Temperature 98.8 F Pulse Rate 68 Respiratory Rate 16 Blood Pressure 134/77 Pulse Oximetry 99 Oxygen Delivery Method Room Air Oxygen Flow Rate 0 Narrative Exam Narrative: General: Patient is a well-developed, well-nourished female, who appears younger than stated age, in no distress at this time. Chest: Normal AP diameter and contour without kyphoscoliosis, no nasal flaring, retractions, or tachypneic labored Cardio: regular rate and rhythm Musculoskeletal: Muscle strength and tone are equal within normal limits, no deformity Skin: Warm dry without rashes, ulcerations or petechiae. Neuro: Alert and orientated x3, strength is +5/5 in all extremities, sensation to touch intact, no gross deficits noted of cranial nerves. Psych: Patient has a well-kept appearance, appropriate affect, mental status attitude thought context and judgment are appropriate for age. Objective Labs Result Diagrams: 04/19/20 14:32 04/19/20 14:32 Labs: Laboratory Results - last 24 hr 04/20/20 05:00 TSH 2.30 PFSH Medical History Glaucoma Family History Mother Atrial fibrillation Heart attack Father Hypertension Social History household members: spouse Smoking Status: Never smoker alcohol intake: never Discharge Plan Discharge Plan Patient Disposition: Home Provider Discharge Comment: You were admitted to the hospital with chest pain, stress testing and echocardiogram were unremarkable. Please follow up with your primary care provider if symptoms recur. No medication changes are recommended at this time. Discharge orders & Medications Prescriptions: Continued Lumigan 0.01 % drops 1 drp EYE-BOTH BEDTIME RF: 0 Diet/Activity/Treatments Diet: Diet as Tolerated Activity: As tolerated Discharge Data Attending Provider: Monster Armendariz VTE Deep Vein Thrombosis/Pulmonary Embolism Present on Admission: No
--- NOTE | 2020-04-21 14:19 | PC.NURSE ---
Day shift note: Patient awake, alert, and pleasantly cooperative. No c/o chest pain, SOB, or dizziness, at rest or with activity. Discharge instructions given to patient, discussed importance of F/U with PMD, s/sx of stroke, and home safety. Awaiting for spouse in room in stable condition.
== END 2020-04-21 15:15 | disposition home or self-care (01) ==
LOC: ED 18:45 → AC 19:20
PROVIDERS: Nurse Practitioner Family; Admitting Provider Internal Medicine; Emergency Provider Emergency Medicine; Referring Provider Emergency Medicine; Visit Provider Internal Medicine
DX: R07.9 Chest pain, unspecified (principal); H40.9 Unspecified glaucoma; R03.0 Elevated blood-pressure reading, without diagnosis of hypertension; Z20.822 Contact with and (suspected) exposure to COVID-19
CPT/HCPCS: 36415; 71045; 78452; 80053; 80061; 82550; 82553; 83690; 83735; 83880; 84100; 84443; 84484; 85025; 85379; 85610; 85730; 87635; 93005; 93017; 93306; 96360; 96361; 96372; 97161; 99284; C9803; G0378; A9502; J1650